=== PATIENT | male | born 1945 | race Two or more races ===

== ENCOUNTER 2021-08-24 20:41 | Emergency (ER) | payer OTHER ==
[~2021-08-24] VITALS: Ht 180.3 cm; Wt 88.5 kg
[2021-08-24] MEDS ORDERED: AMLODIPINE-OLM1 EAC3 PO (20:51)
[2021-08-24] MEDS ORDERED: ZOVIRAX400 MG PO (20:51)
[2021-08-24] MEDS ORDERED: IMBRUVICA140 MG PO (20:52)
[2021-08-24] MEDS ORDERED: ADULT LOW DOSE81 M1 PO (20:52)
[2021-08-24] MEDS ORDERED: LIPITOR40 MG PO (20:52)
[2021-08-24] MEDS ORDERED: MULTIPLE VITAM1 EAC2 (20:53)
[2021-08-24] MEDS ORDERED: NIACOR500 MG (20:53)
[2021-08-24] MEDS ORDERED: PRALUENT P75 MG/1 ML SQ (20:53)
[2021-08-24] MEDS ORDERED: TOPROL XL50 M1 PO (20:53)
[2021-08-24] MEDS ORDERED: VIAGRA100 MG PO (20:54)
== END 2021-08-25 00:17 | disposition left against medical advice (07) ==
LOC: ER 20:41
DX: M25.512 Pain in left shoulder (principal); I10 Essential (primary) hypertension